=== PATIENT | female | born 2000 | race African-American/Black ===

== ENCOUNTER 2024-07-18 14:23 | Emergency (ER) | payer MEDICAID ==
[~2024-07-18] VITALS: Ht 175.3 cm; Wt 81.6 kg
[2024-07-18 14:29] VITALS: BP 139/86; TEMP 36.6; O2SAT 99
[2024-07-18 14:40] VITALS: PULSE 86; RESP 18; O2SAT 99
[2024-07-18] MEDS ORDERED: NAPR-681 MT (18:13)
== END 2024-07-18 18:36 | disposition home or self-care (01) ==
LOC: ER 14:23
DX: S00.03XA Contusion of scalp, initial encounter (principal); Y04.0XXA Assault by unarmed brawl or fight, initial encounter; Y93.89 Activity, other specified; Y92.89 Other specified places as the place of occurrence of the external cause; Y99.8 Other external cause status
CPT/HCPCS: 99284